=== PATIENT | male | born 1940 | race Caucasian/White ===

== ENCOUNTER 2018-10-29 17:54 | Emergency (ER) | payer OTHER ==
[2018-10-29 18:55] VITALS: BMI 20.7
--- NOTE | 2018-10-29 19:18 | PDOC ---
History of Present Illness - General Chief Complaint: Trach Tube Replacement Stated Complaint: DISLODGE TRACH - History of Present Illness Initial Comments: 10/29/18 20:09 78 year old man coming from [facility] who presents w/ trach displacement after recent tracheostomy placement on October 15 at [facility]. When calling facility for collateral they note that the patient was received at the facility on Oct 27 and that there is limited history at this time of the patient's history. [facility] was called in attempt to locate surgeon who had performed the procedure, Dr. Clark. The physician recommended transfer for management. ROS GENERAL/CONSTITUTIONAL: No fever or chills. No weakness. HEAD, EYES, EARS, NOSE AND THROAT: No change in vision. CARDIOVASCULAR: No chest pain or shortness of breath RESPIRATORY: No cough, wheezing, or hemoptysis. GASTROINTESTINAL: No nausea, vomiting, diarrhea or constipation. GENITOURINARY: No dysuria, frequency, or change in urination. MUSCULOSKELETAL: No joint or muscle swelling or pain. No neck or back pain. SKIN: No rash PE GENERAL: Awake, alert, in no acute distress HEAD: No signs of trauma, normocephalic, atraumatic EYES: EOMI, sclera anicteric, conjunctiva clear ENT: trachea dislodged approx 40% purulence/mucus around site, R side of neck with large granulated mass approx 4cm x 4cm w/ purulence/mucus NECK: displaced trach LUNGS: No distress, speaks full sentences, clear to auscultation bilaterally HEART: Regular rate and rhythm, normal S1 and S2, no murmurs, rubs or gallops, peripheral pulses normal and equal bilaterally. ABDOMEN: Soft, nontender, normoactive bowel sounds. No guarding, no rebound. No masses EXTREMITIES : Normal inspection, No clubbing or cyanosis. NEUROLOGICAL: Cranial nerves II through XII grossly intact. no focal sensorimotor deficits SKIN: Warm, Dry, normal turgor, no rashes or lesions noted MDM DDX including but not limited to: trach displacement ED Course: plan for transfer to [facility] for operating surgeons care Kezia Hagen, PGY2 Emergency Medicine Past History - Past Medical History Allergies/Adverse Reactions: Allergies Allergy/AdvReac Type Severity Reaction Status Date / Time No Known Allergies Allergy Verified 10/29/18 18:55 Home Medications: Ambulatory Orders Acetaminophen Oral Solution [Tylenol Oral Solution -] 650 mg PEG Q4H PRN Aspirin 81 mg PEG DAILY 10/29/18 Bacitracin - [Bacitracin Topical Ointment -] 1 applic TP DAILY 10/29/18 Bacitracin - [Bacitracin Topical Ointment -] 1 applic TP DAILY 10/29/18 Bacitracin - [Bacitracin Topical Ointment -] 1 applic TP QSHIFT 10/29/18 Bismuth Tribromoph/Petrolatum [Xeroform Petrolatum Dress] 1 each TP DAILY Chlorhexidine Gluconate 15 ml MM QID 10/29/18 Doxazosin Mesylate [Cardura -] 1 mg PEG DAILY 10/29/18 Esomeprazole Magnesium 40 mg PEG DAILY 10/29/18 Levofloxacin 750 mg PEG DAILY MDD FOR 7 DAYS- END DATE 11/04/2018 10/29/18 Levothyroxine Sodium [Euthyrox] 150 mcg PO DAILY 10/29/18 Meclizine HCl [Antivert -] 12.5 mg PO Q8H PRN 10/29/18 Oxycodone HCl 5 mg PO Q4H PRN 10/29/18 Polyvinyl Alcohol [Artificial Tears] 1 drop OD TID 10/29/18 Valsartan/Hydrochlorothiazide [Valsartan-Hctz 160-25 mg Tab] 1 each PO DAILY 02/04 - Suicide/Smoking/Psychosocial Hx Smoking History: Never smoked Have you smoked in the past 12 months: No Information on smoking cessation initiated: No Hx Alcohol Use: No Drug/Substance Use Hx: No *Physical Exam - Vital Signs Last Vital Signs Temp Pulse Resp BP Pulse Ox 98.2 F 77 17 116/78 98 10/29/18 17:54 10/29/18 17:54 10/29/18 17:54 10/29/18 17:54 10/29/18 17:54 *DC/Admit/Observation/Transfer - Referrals Referrals: Erick Ji [Primary Care Provider] - - Patient Instructions - Post Discharge Activity
--- NOTE | 2018-10-29 19:41 | PDOC ---
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 Per NH, pt's trach was removed today for cleaning. However, when trying to reinsert it, they were unable to pass it due to the mass in his neck. Pt denies any symptoms at this time. Denies SOB. Pt's ENT surgeon is at [facility]. - Physicial Exam PE: 10/29/18 19:39 GENERAL: Awake, alert, and fully oriented, in no acute distress. HEAD: No signs of trauma EYES: PERRLA, EOMI, sclera anicteric, conjunctiva clear ENT: + tracheostomy, trach partially displaced NECK: Nontender, no stepoffs, Normal ROM, supple, no lymphadenopathy, JVD, or masses LUNGS: Breath sounds equal, clear to auscultation bilaterally. No wheezes, and no crackles HEART: Regular rate and rhythm, normal S1 and S2, no murmurs, rubs or gallops ABDOMEN: Soft, nontender, normoactive bowel sounds. No guarding, no rebound. No masses EXTREMITIES: Normal range of motion, no edema. No clubbing or cyanosis. No cords, erythema, or tenderness NEUROLOGICAL: Cranial nerves II through XII intact. 5/5 strength and sensation in all extremities SKIN: Warm, Dry, normal turgor, no rashes or lesions noted. - Medical Decision Making 10/29/18 19:41 78 M with displaced trach, unable to replace due to neck mass. Pt is not on vent , breathing comfortably with trach collar. Clear lungs, no evidence of upper airway obstruction. - Transfer to [facility] for ENT eval
[2018-10-29 22:33] VITALS: BP 135/71; PULSE 61; TEMP 98
== END 2018-10-29 22:33 | disposition short-term general hospital (02) ==
LOC: JER 17:54
DX: Z43.0 Encounter for attention to tracheostomy (principal)
CPT/HCPCS: 99283-25

== ENCOUNTER 2018-11-14 22:20 | Inpatient (IN) | payer OTHER ==
--- NOTE | 2018-11-14 23:15 | PDOC ---
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 NECK: neck wound covered LUNGS: Breath sounds equal, clear to auscultation bilaterally. HEART:Regular rate and rhythm, normal S1 and S2 without murmur, rub or gallop. ABDOMEN: Soft, non distended PEG in place in the left abdomen, sutures in place with no granulation tissue EXTREMITIES: Normal range of motion NEUROLOGICAL: Moving all extremities, No focal neurological deficits. SKIN: no signs of cellulitis around the G tube 11/15/18 00:23 - Medical Decision Making 11/15/18 00:25 78 yo M presenting to the ER due to G tube dysfunction He states this occurred this afternoon Several attempts made to flush this tube, unsuccessful We have used both saline and coke 11/15/18 00:34 Will contact [facility] re: WHEN this G tube was placed Pt will likey need to stay for G tube replacement 11/15/18 01:28 Call placed to [facility] They do not know when the g tube was placed but there is documentation in their charting hat the G tube was in place in September 2018 Per [facility]dc, G tube placed 200711/15/18 01:43 Pt states he had a G tube for several years This was removed and replaced in this current location The new G tube is 3 weeks old He has not been given any tube feeds in 2 days They have been able to give his medications We have located a G tube de clogger but it is too big to fit into this g tube Will try to locate a smaller tube If we are unable to clear g tube will need to admit for GI Pt signed out to Dr Renteria
--- NOTE | 2018-11-14 23:43 | PDOC ---
History of Present Illness - General Chief Complaint: G Tube Problem Stated Complaint: PIPE TUBE CLOGGED Time Seen by Provider: 11/14/18 22:32 History Source: Patient Exam Limitations: Language Barrier (Libyan, heavily accented speech) - History of Present Illness Initial Comments: 11/14/18 23:42 Tad Lynn is a 78M from [facility] with PMH malignant neoplasm of the neck s/ p resection with trach and PEG placement, T2DM, and HTN presenting with blockage of PEG tube placed 3 weeks ago. Patient lives at [facility] since 10/27 after an admission at [facility]. Is NPO at baseline 2/2 neck surgery, has PEG in place for feeds. Patient has been getting medications and Jevity 1.5L 1200cc @ 85cc/hr through PEG without issue since arrival. Last 2 days the tube has been clogged, only able to pass medications, no Jevity. Transferred here for evaluation and declogging of tube. Patient is hungry, but denies any symptoms at this time. Past History - Past Medical History Allergies/Adverse Reactions: Allergies Allergy/AdvReac Type Severity Reaction Status Date / Time No Known Allergies Allergy Verified 11/14/18 22:31 Home Medications: Ambulatory Orders Aspirin 81 mg PEG DAILY 10/29/18 Chlorhexidine Gluconate 15 ml MM QID 10/29/18 Doxazosin Mesylate [Cardura -] 1 mg PEG DAILY 10/29/18 Esomeprazole Magnesium 40 mg PEG DAILY 10/29/18 Meclizine HCl [Antivert -] 12.5 mg PO Q8H PRN 10/29/18 Oxycodone HCl 5 mg PO Q4H PRN 10/29/18 Polyvinyl Alcohol [Artificial Tears] 1 drop OD TID 10/29/18 Valsartan/Hydrochlorothiazide [Valsartan-Hctz 160-25 mg Tab] 1 each PO DAILY 02/04 Levothyroxine Sodium 175 mcg PO DAILY 11/15/18 Tamsulosin HCl [Flomax] 0.4 mg PO DAILY 11/15/18 COPD: No - Psycho Social/Smoking Cessation Hx Smoking History: Unknown if ever smoked Have you smoked in the past 12 months: No Information on smoking cessation initiated: No Hx Alcohol Use: No Drug/Substance Use Hx: No Review of Systems - Review of Systems Able to Perform ROS?: Yes Comments:: 11/15/18 19:16 Libyan-speaking, difficult to understand. Constitutional: No: Symptoms Reported HEENTM: No: Symptoms Reported Respiratory: No: Symptoms reported Cardiac (ROS): No: Symptoms Reported ABD/GI: Yes: Other (hunger) : No: Symptoms Reported Musculoskeletal: No: Symptoms Reported Integumentary: No: Symptoms Reported Neurological: No: Symptoms reported Endocrine: No: Symptoms Reported Hematologic/Lymphatic: No: Symptoms Reported All Other Systems: Reviewed and Negative *Physical Exam - Vital Signs Last Vital Signs Temp Pulse Resp BP Pulse Ox 98.3 F 62 18 156/86 99 11/14/18 22:30 11/14/18 22:30 11/14/18 22:30 11/14/18 22:30 11/14/18 22:30 - Physical Exam General Appearance: Yes: Nourished, Appropriately Dressed, Thin. No: Apparent Distress HEENT: positive: EOMI, MANOHAR, Symmetrical, Muffled/Hoarse voice (mouth and neck shifted to R with extensive scarring). negative: Scleral Icterus (R), Scleral Icterus (L) Neck: negative: Tender, Supple, Lymphadenopathy (R), Lymphadenopathy (L) Respiratory/Chest: positive: Lungs Clear, Normal Breath Sounds. negative: Respiratory Distress, Accessory Muscle Use, Crackles, Rales, Rhonchi Cardiovascular: positive: Regular Rhythm, Regular Rate Gastrointestinal/Abdominal: positive: Normal Bowel Sounds, Soft, Other (PEG placed L periumbilical region, sutured in place, clogged. Well-healed central midline circular scar consistent with former PEG. Healing ). negative: Tender Musculoskeletal: positive: Normal Inspection. negative: CVA Tenderness Extremity: positive: Normal Capillary Refill, Normal Inspection, Normal Range of Motion. negative: Tender Integumentary: positive: Normal Color, Dry, Warm Neurologic: positive: Fully Oriented, Alert, Normal Mood/Affect, Normal Response , Motor Strength 5/5, Responsive ED Treatment Course - LABORATORY CBC & Chemistry Diagram: 11/15/18 02:15 11/15/18 02:15 Medical Decision Making - Medical Decision Making 11/14/18 23:42 Tad Lynn is a 78M from [facility] with PMH malignant neoplasm of the neck s/ p resection with trach and PEG placement, T2DM, and HTN presenting with blockage of PEG tube placed 3 weeks ago. Patient is otherwise asymptomatic and no complaints other than hunger. Alert/oriented x3 and has excellent recall of his medical history consistent with records, no memory issues or deficits notable. Has not eaten anything for the last 2 days, but has had medications. Multiple attempts to unclog tube, including saline flush, syringe suction, soda infusion, and manual declogging with a plastic DeClogger. Exchange of the G tube indicated. However, tube was placed under 4 weeks ago and is still sutured to abdomen, tract is not mature. Requires exchange of PEG by direct visualization by surgical team vs. GI. ECG shows sinus rhythm with 1st degree AV block, HR 64, QRS 134. 11/15/18 04:22 Spoke to [facility] regarding admission to Med-Surg under Dr. Potts. Consult placed for Dr. Salas for GI evaluation for tube exchange. Consider transfer back to [facility] for replacement given that is the facility it was placed. Discharge - Discharge Information Problems reviewed: Yes Clinical Impression/Diagnosis: PEG tube malfunction HTN (hypertension) Qualifiers: Hypertension type: essential hypertension Qualified Code(s): I10 - Essential ( primary) hypertension Diabetes mellitus Qualifiers: Diabetes mellitus type: type 2 Diabetes mellitus fpc insulin use: unspecified fpc insulin use status Diabetes mellitus complication status: without complication Qualified Code(s): E11.9 - Type 2 diabetes mellitus without complications Condition: Stable - Admission Yes - Follow up/Referral - Patient Discharge Instructions - Post Discharge Activity
[2018-11-15] MEDS ORDERED: SODIUM CHLORIDE 1,000 ML IV STA (02:03)
[2018-11-15 02:23] LABS: BASO % 1.1 % (0-2.0); EOS % 3.3 % (0-4.5); HEMATOCRIT 30.7 % (35.4-49); HEMOGLOBIN 10.3 GM/dL (11.7-16.9); LYMPH % 29.8 % (8-40); MCHC 33.4 g/dl (32.0-35.9); MEAN PLT VOLUME 8.2 fl (7.5-11.1); MONO % 7.2 % (3.8-10.2); NEUT % 58.6 % (42.8-82.8); PLATELET COUNT 190 K/MM3 (134-434); RBC 3.53 M/mm3 (4.00-5.60); RDW 13.8 % (11.9-15.9); WHITE BLOOD COUNT 3.9 K/mm3 (4.0-10.0)
[2018-11-15 02:43] LABS: MAGNESIUM 2.3 mg/dL (1.8-2.4); PHOSPHOROUS 3.4 mg/dL (2.5-4.9)
[2018-11-15 02:47] LABS: ALBUMIN 3.2 g/dl (3.4-5.0); BILIRUBIN,TOTAL 0.4 mg/dL (0.2-1); CALCIUM 9.1 mg/dL (8.5-10.1); CREATININE 0.8 mg/dL (0.55-1.3); TOT PROT 7.1 g/dl (6.4-8.2)
--- NOTE | 2018-11-15 04:12 | HP ---
Admitting History and Physical - Primary Care Physician PCP: Erick Ji - Admission Chief Complaint: Peg Malfunction History of Present Illness: This is a 78 y/o from [facility] man with a significant medical history of Oropharyngeal Ca s/p Trach (09/2018, [facility]), Trach removal (10/2018), PEG placement, HTN, DM, Hypothyroidism, BPH. Who presents to the ED for malfunctioned Peg Tube x 2 days. Per transfer records, medications were given but could not give feedings due to blockage. Patient is Citizen Of [place] speaking [place] used #[id number]. Patient has no complaints at present. Patient denies fever, chills, cough, dizziness, BAUM, SOB, CP, palpitations, N/V/D, constipation , dysuria. Tube Feeding: Jevity1.5 1200cc via GT @85cc/hr History Source: Patient, Transfer Record Limitations to Obtaining History: Language Barrier (Citizen Of [place]), Physical Impairment - Past Medical History Cardiovascular: Yes: HTN Gastrointestinal: Yes: GERD Renal/: Yes: BPH ENT: Yes: Other (Head/Neck Ca Tongue Ca) Endocrine: Yes: Diabetes Mellitus, Hypothyroidism - Past Surgical History Additional Past Surgical History: PEG Tracheotomy placement Tracheotomy removal - Smoking History Smoking history: Unknown if ever smoked Have you smoked in the past 12 months: No - Alcohol/Substance Use Hx Alcohol Use: No History of Substance Use: reports: None - Social History Usual Living Arrangement: Yes: [facility] Do you think of yourself as: Straight/Heterosexual ADL: Support Services History of Recent Travel: No Home Medications - Allergies Allergies/Adverse Reactions: Allergies Allergy/AdvReac Type Severity Reaction Status Date / Time No Known Allergies Allergy Verified 11/14/18 22:31 - Home Medications Home Medications: Ambulatory Orders Aspirin 81 mg PEG DAILY 10/29/18 Chlorhexidine Gluconate 15 ml MM QID 10/29/18 Doxazosin Mesylate [Cardura -] 1 mg PEG DAILY 10/29/18 Esomeprazole Magnesium 40 mg PEG DAILY 10/29/18 Meclizine HCl [Antivert -] 12.5 mg PO Q8H PRN 10/29/18 Oxycodone HCl 5 mg PO Q4H PRN 10/29/18 Polyvinyl Alcohol [Artificial Tears] 1 drop OD TID 10/29/18 Valsartan/Hydrochlorothiazide [Valsartan-Hctz 160-25 mg Tab] 1 each PO DAILY 02/04 Levothyroxine Sodium 175 mcg PO DAILY 11/15/18 Tamsulosin HCl [Flomax] 0.4 mg PO DAILY 11/15/18 Family Medical History Family History: Unable to Obtain Review of Systems - Review of Systems Constitutional: reports: No Symptoms Eyes: reports: No Symptoms HENT: reports: No Symptoms Neck: reports: No Symptoms Cardiovascular: reports: No Symptoms Respiratory: reports: No Symptoms Gastrointestinal: reports: No Symptoms Genitourinary: reports: No Symptoms Breasts: reports: No Symptoms Reported Musculoskeletal: reports: No Symptoms Integumentary: reports: No Symptoms Neurological: reports: No Symptoms Endocrine: reports: No Symptoms Hematology/Lymphatic: reports: No Symptoms Psychiatric: reports: No Symptoms Physical Examination Vital Signs: Vital Signs Temperature 98.3 F 11/14/18 22:30 Pulse Rate 62 11/14/18 22:30 Respiratory Rate 18 11/14/18 22:30 Blood Pressure 156/86 11/14/18 22:30 O2 Sat by Pulse Oximetry (%) 99 11/15/18 00:00 Constitutional: Yes: No Distress, Calm, Thin, Other (diificult to understand- baseline) Eyes: Yes: WNL, Conjunctiva Clear, EOM Intact, PERRL HENT: Yes: Atraumatic, Other (poor dentition surgical scar to tongue) Neck: Yes: Supple, Trachea Midline, Other (left lateral neck wound post malignant neoplasm with dressing c/d/i) Cardiovascular: Yes: Regular Rate and Rhythm, S1, S2 Respiratory: Yes: WNL, Regular, CTA Bilaterally Gastrointestinal: Yes: Normal Bowel Sounds, Soft, Other (peg to LMQ surrounding skin intact) ...Rectal Exam: Yes: Deferred Renal/: Yes: WNL Breast(s): Yes: WNL Musculoskeletal: Yes: WNL Extremities: Yes: WNL Edema: No Peripheral Pulses WNL: Yes Wound/Incision: Yes: Dressing Dry and Intact, Reddened, Excoriated Neurological: Yes: WNL, Alert, Oriented, Cran Nerves II-XII Intact ...Motor Strength: WNL Psychiatric: Yes: WNL, Alert, Oriented Labs: CBC, BMP 11/15/18 02:15 11/15/18 02:15 Laboratory Results - last 24 hr 11/15/18 11/15/18 11/15/18 02:15 02:15 02:15 WBC 3.9 L RBC 3.53 L Hgb 10.3 L Hct 30.7 L MCV 87.0 MCH 29.0 MCHC 33.4 RDW 13.8 Plt Count 190 MPV 8.2 Absolute Neuts (auto) 2.3 Neutrophils % 58.6 Lymphocytes % 29.8 Monocytes % 7.2 Eosinophils % 3.3 Basophils % 1.1 Nucleated RBC % 0 Sodium 140 Potassium 4.0 Chloride 102 Carbon Dioxide 32 Anion Gap 6 L BUN 23.0 H Creatinine 0.8 Est GFR (CKD-EPI)AfAm 100.57 Est GFR (CKD-EPI)NonAf 86.77 Random Glucose 86 Calcium 9.1 Phosphorus 3.4 Magnesium 2.3 Total Bilirubin 0.4 AST 22 ALT 31 Alkaline Phosphatase 107 Total Protein 7.1 Albumin 3.2 L Intake & Output 11/12/18 11/13/18 11/14/18 11/15/18 23:59 23:59 23:59 23:59 Weight 63.503 kg Imaging - Results Chest X-ray: Image Reviewed EKG: Image Reviewed Problem List - Problems (1) PEG tube malfunction Code(s): K94.23 - GASTROSTOMY MALFUNCTION (2) HTN (hypertension) Code(s): I10 - ESSENTIAL (PRIMARY) HYPERTENSION (3) Diabetes mellitus Code(s): E11.9 - TYPE 2 DIABETES MELLITUS WITHOUT COMPLICATIONS (4) Hypothyroid Code(s): E03.9 - HYPOTHYROIDISM, UNSPECIFIED (5) BPH (benign prostatic hyperplasia) Code(s): N40.0 - BENIGN PROSTATIC HYPERPLASIA WITHOUT LOWER URINRY TRACT SYMP Assessment/Plan This is a 78 y/o man with a PMHx of Oropharyngeal Ca s/p Trach (09/2018, [facility]), Trach removal (10/2018), s/p PEG, HTN, DM, Hypothyroid, BPH. Admitted to med/surg for PEG Malfunction for further evaluation of their emergent condition. Plan: Admit: Appreciate GI consult BGMs Continue home meds as appropriate IV EKG- SR with 1st degree AV block, no study available to compare Chest Xray- pending Monitor CBC, BMP Monitor vitals FEN- D51/2NS@42ml/hr, replete lytes prn, NPO DVT ppx- OOB, SCDs, Heparin SQ Code Status: Full Code Dispo: Requires Inpatient Care Visit type - Emergency Visit Emergency Visit: Yes ED Registration Date: 11/14/18 Care time: The patient presented to the Emergency Department on the above date and was hospitalized for further evaluation of their emergent condition. - New Patient This patient is new to me today: Yes Date on this admission: 11/15/18 - Critical Care Critical Care patient: No
[2018-11-15] MEDS: DEXTROSE 5%-0.45% SALINE 1,000 ML IV SCH (05:16)
[2018-11-15 07:05] VITALS: BMI 18.1
--- NOTE | 2018-11-15 08:08 | CON.GI ---
Consult - History of Present Illness History of Present Illness: GI CONSULT DICTATED - ENZYME TRIAL TO UNCLOG THE PEG TUBE - FURTHER REC PENDING THIS TRIAL - SEE CONSULT FOR FULL DETAILS. - Past Medical History Cardio/Vascular: Yes: HTN Gastrointestinal: Yes: GERD Renal/: Yes: BPH ENT: Yes: Other (Head/Neck Ca Tongue Ca) Endocrine: Yes: Diabetes Mellitus, Hypothyroidism - Alcohol/Substance Use Hx Alcohol Use: No History of Substance Use: reports: None - Smoking History Smoking history: Unknown if ever smoked Have you smoked in the past 12 months: No - Social History ADL: Support Services History of Recent Travel: No Home Medications - Allergies Allergies/Adverse Reactions: Allergies Allergy/AdvReac Type Severity Reaction Status Date / Time No Known Allergies Allergy Verified 11/14/18 22:31 - Home Medications Home Medications: Ambulatory Orders Aspirin 81 mg PEG DAILY 10/29/18 Chlorhexidine Gluconate 15 ml MM QID 10/29/18 Doxazosin Mesylate [Cardura -] 1 mg PEG DAILY 10/29/18 Esomeprazole Magnesium 40 mg PEG DAILY 10/29/18 Meclizine HCl [Antivert -] 12.5 mg PO Q8H PRN 10/29/18 Oxycodone HCl 5 mg PO Q4H PRN 10/29/18 Polyvinyl Alcohol [Artificial Tears] 1 drop OD TID 10/29/18 Valsartan/Hydrochlorothiazide [Valsartan-Hctz 160-25 mg Tab] 1 each PO DAILY 02/04 Levothyroxine Sodium 175 mcg PO DAILY 11/15/18 Tamsulosin HCl [Flomax] 0.4 mg PO DAILY 11/15/18 Physical Exam-GI Vital Signs: Vital Signs Temperature 98 F 11/15/18 07:00 Pulse Rate 72 11/15/18 07:00 Respiratory Rate 18 11/15/18 07:00 Blood Pressure 143/93 11/15/18 07:00 O2 Sat by Pulse Oximetry (%) 99 11/15/18 05:28 Labs: CBC, BMP 11/15/18 02:15 11/15/18 02:15
[2018-11-15] MEDS ORDERED: FLU VACCINE QUAD 60 MCG/0.5 ML (MDV 19-20) IM ONE (10:00)
[2018-11-15] MEDS ORDERED: PT OWN MED DRAWER 7, Y5N ONE (10:45)
[2018-11-15] MEDS: PANTOPRAZOLE SODIUM 40 MG VIAL IVPUSH SCH (10:48)
[2018-11-15] MEDS: LEVOTHYROXINE SODIUM 100 MCG VIAL IVPUSH SCH (10:58)
[2018-11-15] MEDS ORDERED: LIPASE/PROTEASE/AMYLASE 6,000 UNIT CAPSULE PO ONE (11:00)
--- NOTE | 2018-11-15 15:23 | PN ---
Progress Note, Physician Chief Complaint: Oropharyngeal Cancer Malfunctioning G tube History of Present Illness: Previous notes and events reviewed awake and alert NAD denies complaints of pain no acute events reported - Current Medication List Current Medications: Active Medications Dextrose/Sodium Chloride (D5-1/2ns -) 1,000 mls @ 42 mls/hr IV ASDIR [facility] Last Admin: 11/15/18 05:16 Dose: 42 mls/hr Levothyroxine Sodium (Synthroid Injection -) 130 mcg IVPUSH DAILY [facility] Last Admin: 11/15/18 10:58 Dose: 130 mcg Pantoprazole Sodium (Protonix Iv) 40 mg IVPUSH DAILY [facility] Last Admin: 11/15/18 10:48 Dose: 40 mg - Objective Vital Signs: Vital Signs Temperature 97.7 F 11/15/18 10:56 Pulse Rate 57 L 11/15/18 10:56 Respiratory Rate 18 11/15/18 10:56 Blood Pressure 143/66 11/15/18 10:56 O2 Sat by Pulse Oximetry (%) 99 11/15/18 05:28 Constitutional: Yes: No Distress, Calm Eyes: Yes: Conjunctiva Clear HENT: Yes: Atraumatic Cardiovascular: Yes: Regular Rate and Rhythm Respiratory: Yes: Regular, CTA Bilaterally Gastrointestinal: Yes: Normal Bowel Sounds, Soft, Other (G tube) Musculoskeletal: Yes: WNL Extremities: Yes: WNL Edema: No Neurological: Yes: Alert, Oriented Psychiatric: Yes: Alert, Oriented Labs: CBC, BMP 11/15/18 02:15 11/15/18 02:15 Problem List - Problems (1) Diabetes mellitus Assessment/Plan: -BGM ACHS Code(s): E11.9 - TYPE 2 DIABETES MELLITUS WITHOUT COMPLICATIONS (2) HTN (hypertension) Assessment/Plan: -BP meds on hold -monitor BP -Lopressor 5mg IVPB prn for SBP >180 and/or DBP >90 Code(s): I10 - ESSENTIAL (PRIMARY) HYPERTENSION (3) Hypothyroid Assessment/Plan: -Levothyroxine Code(s): E03.9 - HYPOTHYROIDISM, UNSPECIFIED (4) PEG tube malfunction Assessment/Plan: -GI on board -NPO -IV hydration -Creon Code(s): K94.23 - GASTROSTOMY MALFUNCTION Assessment/Plan see problem list dvt ppx
[2018-11-15] MEDS ORDERED: METOPROLOL TARTRATE 5 MG/5 ML VIAL IVPB PRN (15:58)
--- NOTE | 2018-11-15 16:11 | CONS ---
DATE OF CONSULTATION: 11/15/2018 The patient is a 78-year-old man from the long term facility. He has a past medical history significant for oropharyngeal cancer, status post tracheostomy in September of 2018, apparently had a PEG tube for many years prior; however, was removed at [facility] and a new one was placed this past September of 2018, also with a tracheostomy, which was removed in October of 2018, also with a history of hypertension, diabetes, hypothyroidism, and BPH. He presented to the emergency room for a clogged PEG tube for the past couple of days. 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 There were no complaints of abdominal pain, nausea, vomiting, hematemesis, melena, hematochezia, change in bowel habits. PAST MEDICAL AND SURGICAL HISTORY: As listed in the HPI. ALLERGIES: No known drug allergies. SOCIAL HISTORY: Currently a nonsmoker, does not use drugs. FAMILY HISTORY: Noncontributory. MEDICATIONS: Home medications were reviewed and include aspirin, Cardura, PPI, Antivert, oxycodone, Artificial Tears, valsartan/hydrochlorothiazide, levothyroxine, and Flomax. REVIEW OF SYSTEMS: As per the HPI. PHYSICAL EXAMINATION: Vital Signs: Temperature 97, pulse 57, blood pressure 143/66, pulse oximetry 99% on room air, respiratory rate 16. General: No acute distress. HEENT: Anicteric sclerae. Cardiovascular: S1, S2, regular rate and rhythm. Lungs: Clear anteriorly bilaterally to auscultation. Abdomen: PEG tube visualized, nontender abdomen. Extremities: No edema. LABORATORY DATA: White blood cell count 3.9, hemoglobin 10, hematocrit 30, platelet count 190. Sodium 140, potassium 4, BUN 23, creatinine 0.8, glucose 86, total bilirubin 0.4, AST 22, ALT 31, alkaline phosphatase 107. He had a chest x-ray which revealed no acute chest pathology. IMPRESSION: Malfunctioning percutaneous gastrostomy tube, most likely clogged. Apparently in the ER, they tried Coca Cola, which did not work. Enzymes with bicarbonate was ordered from the pharmacy and instructions were given to the nurse to inject into the PEG tube using a syringe at attempt to unclog the PEG tube. Further recommendations pending these conservative measures, considering this tube was just placed at some point in the end of September of this year, it cannot be replaced at the bedside. It would need to be done once again endoscopically or with interventional radiology. Will follow up with the nurse later today and plan care accordingly. For now, continue IV fluids. DO JASON NEFF/[id number]
--- NOTE | 2018-11-15 16:47 | EKG ---
Test Reason : Blood Pressure : / mmHG Vent. Rate : 064 BPM Atrial Rate : 064 BPM P-R Int : 258 ms QRS Dur : 134 ms QT Int : 422 ms P-R-T Axes : 063 -52 066 degrees QTc Int : 435 ms SINUS RHYTHM WITH 1ST DEGREE A-V BLOCK LEFT AXIS DEVIATION NON-SPECIFIC INTRA-VENTRICULAR CONDUCTION BLOCK ABNORMAL ECG NO PREVIOUS ECGS AVAILABLE Confirmed by ÓSCAR WINKLER MD ([id number]) on 11/15/2018 4:47:05 PM Referred By: Confirmed By:ÓSCAR WINKLER MD
[2018-11-16] MEDS: DEXTROSE 5%-0.45% SALINE 1,000 ML IV SCH (03:57)
[2018-11-16 07:52] LABS: HEMATOCRIT 31.5 % (35.4-49); HEMOGLOBIN 10.7 GM/dL (11.7-16.9); MCH 29.7 pg (25.7-33.7); MEAN CELL VOLUME 87.2 fl (80-96); MEAN PLT VOLUME 8.7 fl (7.5-11.1); PLATELET COUNT 187 K/MM3 (134-434); RBC 3.61 M/mm3 (4.00-5.60); RDW 13.6 % (11.9-15.9); WHITE BLOOD COUNT 3.5 K/mm3 (4.0-10.0)
[2018-11-16 08:12] LABS: ALBUMIN 3.2 g/dl (3.4-5.0); BILIRUBIN,TOTAL 0.5 mg/dL (0.2-1); BLOOD UREA NITROGEN 15.9 mg/dL (7-18); CALCIUM 9.2 mg/dL (8.5-10.1); CREATININE 0.8 mg/dL (0.55-1.3); POTASSIUM 4.1 mmol/L (3.5-5.1)
--- NOTE | 2018-11-16 08:27 | PN ---
Progress Note, Physician Chief Complaint: AWAKE ALERT EVENTS AND NOTES REVIEWED NO FEVER OR CHILLS DENIES N/V - Current Medication List Current Medications: Active Medications Dextrose/Sodium Chloride (D5-1/2ns -) 1,000 mls @ 42 mls/hr IV ASDIR [facility] Last Admin: 11/16/18 03:57 Dose: 42 mls/hr Levothyroxine Sodium (Synthroid Injection -) 130 mcg IVPUSH DAILY [facility] Last Admin: 11/15/18 10:58 Dose: 130 mcg Metoprolol Tartrate (Lopressor Injection -) 5 mg IVPB Q4H PRN PRN Reason: HYPERTENSION Pantoprazole Sodium (Protonix Iv) 40 mg IVPUSH DAILY [facility] Last Admin: 11/15/18 10:48 Dose: 40 mg - Objective Vital Signs: Vital Signs Temperature 98.2 F 11/16/18 05:00 Pulse Rate 65 11/16/18 05:00 Respiratory Rate 18 11/16/18 05:00 Blood Pressure 155/98 11/16/18 05:00 O2 Sat by Pulse Oximetry (%) 100 11/15/18 21:00 Constitutional: Yes: No Distress Eyes: Yes: WNL HENT: Yes: Other (ORAL / MOTU SURGICAL CHANGES OLD NO DISCHARGE OR PUS) Neck: Yes: WNL Cardiovascular: Yes: Regular Rate and Rhythm Respiratory: Yes: WNL Gastrointestinal: Yes: Other (GTUBE IN PLACE, NON-TENDER) Genitourinary: Yes: WNL Musculoskeletal: Yes: WNL Extremities: Yes: WNL Peripheral Pulses WNL: Yes Integumentary: Yes: WNL Wound/Incision: Yes: Other Neurological: Yes: WNL ...Motor Strength: WNL Psychiatric: Yes: WNL Labs: CBC, BMP 11/16/18 06:05 Problem List - Problems (1) BPH (benign prostatic hyperplasia) Code(s): N40.0 - BENIGN PROSTATIC HYPERPLASIA WITHOUT LOWER URINRY TRACT SYMP (2) Diabetes mellitus Code(s): E11.9 - TYPE 2 DIABETES MELLITUS WITHOUT COMPLICATIONS Qualifiers: Diabetes mellitus type: type 2 Diabetes mellitus snf insulin use: unspecified snf insulin use status Diabetes mellitus complication status : without complication Qualified Code(s): E11.9 - Type 2 diabetes mellitus without complications (3) HTN (hypertension) Code(s): I10 - ESSENTIAL (PRIMARY) HYPERTENSION Qualifiers: Hypertension type: essential hypertension Qualified Code(s): I10 - Essential (primary) hypertension (4) Hypothyroid Code(s): E03.9 - HYPOTHYROIDISM, UNSPECIFIED (5) PEG tube malfunction Code(s): K94.23 - GASTROSTOMY MALFUNCTION Assessment/Plan D/W GI TO EITHER TO HAVE GTUBE REPLACED BY IR OR GI AWAITING DECISION IVF, GLUCOMETER CHECKED DVT PROPHYLAXIS HTN ON EMTOPROLOL IVPG ADDING ENALAPRILAT IV NO CONTRAINDICATION FOR GTUBE CHANGE
[2018-11-16] MEDS ORDERED: ENALAPRILAT DIHYDRATE 1.25 MG/1 ML VIAL IVPB ONE (08:45)
--- NOTE | 2018-11-16 08:54 | PN.GI ---
GI Progress Note Subjective: As per RN G tube is still not functioning and unable to be used. Patient failed enzyme trial. Patient denies nausea, vomiting, abdominal pain. Denies rectal bleeding, blood in stool, melena, abdnormal weight loss. - Objective Vital Signs: Vital Signs Temperature 98.2 F 11/16/18 05:00 Pulse Rate 65 11/16/18 05:00 Respiratory Rate 18 11/16/18 05:00 Blood Pressure 155/98 11/16/18 05:00 O2 Sat by Pulse Oximetry (%) 100 11/15/18 21:00 Constitutional: No Distress, Calm Eyes: Yes: Conjunctiva Clear HENT: Yes: Atraumatic Cardiovascular: Yes: Regular Rate and Rhythm Respiratory: Yes: Regular, CTA Bilaterally Gastrointestinal Inspection: Yes: WNL, Other (G tube). No: Ascites, Distention , Hernia, Scars ...Auscultate: Yes: Normoactive Bowel Sounds. No: Hyperactive Bowel Sounds, Hypoactive Bowel Sounds, No Bowel Sounds, Other ...Palpate: Yes: Soft. No: Firm/Rigid, Guarding, Hepatomegaly, Mass, Pulsatile Mass, Splenomegaly, Tenderness, Tenderness, Epigastium, Tenderness, Rebound, Other ...Percussion: Yes: Tympanitic. No: Dullness, Fluid Wave, Other Neurological: Yes: Alert, Oriented Psychiatric: Yes: Alert, Oriented Labs: CBC, BMP 11/16/18 06:05 11/16/18 06:05 Active Medications Generic Name Dose Route Start Last Admin Trade Name Freq PRN Reason Stop Dose Admin Dextrose/Sodium Chloride 1,000 mls @ 42 mls/hr 11/15/18 04:15 11/16/18 03:57 D5-1/2ns - IV 42 mls/hr ASDIR DONELL Administration Levothyroxine Sodium 130 mcg 11/15/18 10:00 11/15/18 10:58 Synthroid Injection - IVPUSH 130 mcg DAILY DONELL Administration Metoprolol Tartrate 5 mg 11/15/18 15:58 Lopressor Injection - IVPB Q4H PRN HYPERTENSION Pantoprazole Sodium 40 mg 11/15/18 10:00 11/15/18 10:48 Protonix Iv IVPUSH 40 mg DAILY DONELL Administration Problem List - Problems (1) PEG tube malfunction Assessment/Plan: -will attempt at bedside to de-clog PEG tube, if unsuccessful will need to change tube endoscopically or with IR. Code(s): K94.23 - GASTROSTOMY MALFUNCTION
[2018-11-16] MEDS ORDERED: PT OWN MED DRAWER 7, Y5N ONE ×2 (10:54→11:17)
[2018-11-16] MEDS: LEVOTHYROXINE SODIUM 100 MCG VIAL IVPUSH SCH (10:57)
[2018-11-16] MEDS: PANTOPRAZOLE SODIUM 40 MG VIAL IVPUSH SCH (10:57)
--- NOTE | 2018-11-16 11:46 | CONSULT ---
Admitting History and Physical - Past Medical History Cardiovascular: Yes: HTN Gastrointestinal: Yes: GERD Renal/: Yes: BPH ENT: Yes: Other (Head/Neck Ca Tongue Ca) Endocrine: Yes: Diabetes Mellitus, Hypothyroidism - Past Surgical History Additional Past Surgical History: PEG Tracheotomy placement Tracheotomy removal - Smoking History Smoking history: Unknown if ever smoked Have you smoked in the past 12 months: No - Alcohol/Substance Use Hx Alcohol Use: No History of Substance Use: reports: None - Social History ADL: Support Services History of Recent Travel: No History - Admission Reason For Visit: GASTROSTOMY TUBE OBSTRUCTION - Hearing Hearing: Normal Hearing Aide: No Speech Evaluation - Communication Primary Language: [place] Secondary Language: VINCENTIAN Communication: Yes: Simple Responses (yes no WFL) Oral Expression Ability: Yes: Severe Impairment (poor articulation) - Speech Production Dysarthria: Yes: Flaccid Apraxia: No Able to Make Needs Known: Yes: Severely Impaired (poor articulation) - Speech Characteristics Voice Loudness: Monoloudness Voice Pitch: Yes: Limited Variation Voice Phonatory-based Quality: Yes: Weak Speech Pattern: Impaired Speech Clarity: < 75% Nasal Resonance: Hyponasal/Denasal Articulation: Yes: Imprecise Rate of Speech: Too Slow Voice, Other Observations: Yes: Mouth Breathing Voice Comment: difficult expressive language skills - Language/Auditory Comprehension Follows: Yes: 1 Stage Simple Commands (WFL), 2 Stage Simple Commands (WFL) Observation: Able to respond to yes/no queries: Yes, Yes/No Confusion: No, Comprehends Conversational Speech: Yes (in both languages ), Benefits from Slow Speech: No, Benefits from Repetiton: Yes, Benefits from Increased Volume of Speech: No - Language/Verbal Expression Able to Respond to Simple Queries: Yes: WNL (yes no) Able to Communicate Wants and Needs: Yes: Severely Impaired Functional Communication Status: Yes: Severely Impaired Aware of Errors: Yes Attempts to Correct Errors: Yes Use of Gestures: No Written Expression: not examined Reading Comprehension: not examined Calculations: not examined Attention: Yes: Intact - Memory/Perception group home Memory: Yes: Mildly Impaired Short Term Memory: Yes: Mildly Impaired - Swallow Evaluation/Bedside Assessment Current Nutritional Intake: NPO, G Tube (malfunction) Oral Secretions: Yes: Halitosis, Dryness Tracheostomy Present: No Patient on Ventilator: No Dentition: Yes: Edentulous, Missing Teeth (fair condition.) Facial Symmetry at Rest: Facial Droop Left Facial Symmetry on Retraction: Facial Droop Left Facial Movement: Controlled Sensation: Normal Facial Comment: asymmetrical could possibly affect speech Jaw Position: Closed at Rest Against Resistance Opening: Weak Against Resistance Closing: Normal Pucker Lips: Droops Left Smile: Droops Left Lips, Comment: reduced but within functional limits for speech and swallow Lingual Movement: Reduced Tip Elevation, Reduced Lt Lateralization, Reduced Protrusion Lingual Speed of Movement: Reduced Lingual Movement Strgth Against Opposition: Reduced Lingual Movement Characteristics: Fasciculations, Apraxic Lingual Comment: reduced movement Soft Palate Description: Normal Color Hard Palate Description: Normal Color Gag Reflex: Weak Velopharyngeal Movement: Normal Laryngeal Elevation: Impaired Laryngeal Movement: Labored,delay initiation Needs Assistance: No Rate of Intake: Impulsive Bolus Size: Small Labial Seal: WFL Chewing: Impaired Oral Prep Time: WFL A-P Transit: WFL Pocketing: Clears Independently Timing of Swallow: Delayed Coughing/Throat Clear: No Change in Voice: No Other Findings/Remarks: 78 yo male seen at chairside on unit for swallow eval to r/o dysphagia. Pt is verbal with poor articulation (less than 75% understood). Pt primary language is Sammarinese but completely understands Malawian. Admitted to [facility] for PEG malfunction. Pt presents with BPH, DM, HTN, hypothyroid and s/p trach removal ( 10/2018). Asymmetrical facial features with limited lingual movement, reduced laryngeal movement and airway protection. Vocal quality is breathy and nasal. Current diet NPO Pt given po trials of puree without assistance revealed good acceptance, adequate bolus formation and transport. Pharyngeal swallows are delayed 2-3 seconds with no s/s of aspiration-like behaviors at chairside. Pt given po trials of thick and thin liquids sips without assistance were unremarkable for aspiration-like behaviors at this time. Recommendations - Speech Evaluation, Impression/Plan Impression: 78 yo presents with mild to moderate pharyngeal phase dysphagia for purees thick and thin liquids with no s/s of aspiration at chairside. Pt also presents with severe expressive language with poor articulation in both Sammarinese and Malawian. Silent aspiration cannot be ruled out a chairside. Recommended Therapies: Articulation, Other (AAC?) Picking Crew Supervisor Goals: tolerate the least restrictive diet without s/s of aspiration Short Term Goals: tolerate the least restrictive diet without s/s of aspiration - Dysphagia Impressions/Plan Swallowing Skills: Impaired Dysphagia Impressions: Moderate Impairment (limited laryngeal movement.), Risk of Aspiration, Suspect Aspiration *Silent aspiration: cannot be R/O at bedside Dysphagia Evaluation Summary: Continue NPO status at this time. Silent aspiration is a good possibility with reduced laryngeal movement, poor airway protection and breathy vocalization. Consider alternate means of providing nutritional support, hydration and medication. Results given verbally to set up and charger and PCP via chart. prawn trawler hand to follow up. - Recommendations Diet Consistency: NPO Liquids: NPO
[2018-11-17] MEDS: DEXTROSE 5%-0.45% SALINE 1,000 ML IV SCH (06:32)
--- NOTE | 2018-11-17 08:18 | PN.GI ---
GI Progress Note Subjective: Patient failed de-clogging attempt at bedside of G tube. IR consult placed. Denies nausea, vomiting, abdominal pain. Denies diarrhea, constipation, rectal bleeding. - Objective Vital Signs: Vital Signs Temperature 97.6 F 11/17/18 06:51 Pulse Rate 53 L 11/17/18 06:51 Respiratory Rate 20 11/17/18 06:51 Blood Pressure 135/67 11/17/18 06:51 O2 Sat by Pulse Oximetry (%) 100 11/16/18 21:00 Constitutional: No Distress, Calm Eyes: Yes: Conjunctiva Clear HENT: Yes: Atraumatic Cardiovascular: Yes: Regular Rate and Rhythm Respiratory: Yes: Regular, CTA Bilaterally Gastrointestinal Inspection: Yes: WNL. No: Ascites, Distention, Hernia, Scars, Other ...Auscultate: Yes: Normoactive Bowel Sounds. No: Hyperactive Bowel Sounds, Hypoactive Bowel Sounds, No Bowel Sounds, Other ...Palpate: Yes: Soft. No: Firm/Rigid, Guarding, Hepatomegaly, Mass, Pulsatile Mass, Splenomegaly, Tenderness, Tenderness, Epigastium, Tenderness, Rebound, Other ...Percussion: Yes: Tympanitic. No: Dullness, Fluid Wave, Other Neurological: Yes: Alert, Oriented Psychiatric: Yes: Alert, Oriented Labs: CBC, BMP 11/16/18 06:05 11/16/18 06:05 Active Medications Generic Name Dose Route Start Last Admin Trade Name Freq PRN Reason Stop Dose Admin Dextrose/Sodium Chloride 1,000 mls @ 42 mls/hr 11/15/18 04:15 11/17/18 06:32 D5-1/2ns - IV 42 mls/hr ASDIR DONELL Administration Levothyroxine Sodium 130 mcg 11/15/18 10:00 11/16/18 10:57 Synthroid Injection - IVPUSH 130 mcg DAILY DONELL Administration Metoprolol Tartrate 5 mg 11/15/18 15:58 Lopressor Injection - IVPB Q4H PRN HYPERTENSION Pantoprazole Sodium 40 mg 11/15/18 10:00 11/16/18 10:57 Protonix Iv IVPUSH 40 mg DAILY DONELL Administration Problem List - Problems (1) PEG tube malfunction Assessment/Plan: -IR consult placed, will need to change tube endoscopically with IR. Code(s): K94.23 - GASTROSTOMY MALFUNCTION
--- NOTE | 2018-11-17 08:37 | PN ---
Progress Note, Physician Chief Complaint: AWAKE ALERT NO FEVER OR CHILLS DENIES CHEST PAIN OR SOB - Current Medication List Current Medications: Active Medications Dextrose/Sodium Chloride (D5-1/2ns -) 1,000 mls @ 42 mls/hr IV ASDIR [facility] Last Admin: 11/17/18 06:32 Dose: 42 mls/hr Levothyroxine Sodium (Synthroid Injection -) 130 mcg IVPUSH DAILY [facility] Last Admin: 11/16/18 10:57 Dose: 130 mcg Metoprolol Tartrate (Lopressor Injection -) 5 mg IVPB Q4H PRN PRN Reason: HYPERTENSION Pantoprazole Sodium (Protonix Iv) 40 mg IVPUSH DAILY [facility] Last Admin: 11/16/18 10:57 Dose: 40 mg - Objective Vital Signs: Vital Signs Temperature 97.6 F 11/17/18 06:51 Pulse Rate 53 L 11/17/18 06:51 Respiratory Rate 20 11/17/18 06:51 Blood Pressure 135/67 11/17/18 06:51 O2 Sat by Pulse Oximetry (%) 100 11/16/18 21:00 Constitutional: Yes: No Distress Eyes: Yes: WNL HENT: Yes: Other (SURGICAL MALFORMATION OF MOTH/LIPS) Neck: Yes: WNL Cardiovascular: Yes: Regular Rate and Rhythm Respiratory: Yes: WNL Gastrointestinal: Yes: Other (GTUBE IN PLACE NOT FUNCTIONING) Musculoskeletal: Yes: Muscle Weakness Edema: No Peripheral Pulses WNL: Yes Integumentary: Yes: WNL Wound/Incision: Yes: Other Neurological: Yes: Pre-Existing Deficit Labs: CBC, BMP 11/16/18 06:05 11/16/18 06:05 Problem List - Problems (1) BPH (benign prostatic hyperplasia) Code(s): N40.0 - BENIGN PROSTATIC HYPERPLASIA WITHOUT LOWER URINRY TRACT SYMP (2) Diabetes mellitus Code(s): E11.9 - TYPE 2 DIABETES MELLITUS WITHOUT COMPLICATIONS Qualifiers: Diabetes mellitus type: type 2 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 insulin use: unspecified shelter insulin use status Diabetes mellitus complication status : without complication Qualified Code(s): E11.9 - Type 2 diabetes mellitus without complications (3) HTN (hypertension) Code(s): I10 - ESSENTIAL (PRIMARY) HYPERTENSION Qualifiers: Hypertension type: essential hypertension Qualified Code(s): I10 - Essential (primary) hypertension (4) Hypothyroid Code(s): E03.9 - HYPOTHYROIDISM, UNSPECIFIED (5) PEG tube malfunction Code(s): K94.23 - GASTROSTOMY MALFUNCTION (6) Cancer of the lip, oral cavity, and pharynx Code(s): C14.8 - MALIG NEOPLM OF OVRLP SITES OF LIP, ORAL CAVITY AND PHARYNX Assessment/Plan AWAITING I.R. FOR GTUBE REPAIR/REPLACEMENT MEDS REVIEWED LABS REVIEWED DVT PROPHYLAXIS OOB TO CHAIR WITH ASSISTANCE PT DARIELA
[2018-11-17] MEDS ORDERED: PT OWN MED DRAWER 7, Y5N ONE (10:50)
[2018-11-17] MEDS: PANTOPRAZOLE SODIUM 40 MG VIAL IVPUSH SCH (10:57)
[2018-11-17] MEDS: LEVOTHYROXINE SODIUM 100 MCG VIAL IVPUSH SCH (10:58)
--- NOTE | 2018-11-17 13:37 | DS ---
Physical Examination Vital Signs: Vital Signs Temperature 97.6 F 11/17/18 06:51 Pulse Rate 53 L 11/17/18 06:51 Respiratory Rate 20 11/17/18 06:51 Blood Pressure 135/67 11/17/18 06:51 O2 Sat by Pulse Oximetry (%) 100 11/16/18 21:00 Findings/Remarks: Laboratory Tests 11/15/18 11/15/18 11/15/18 02:15 02:15 02:15 WBC 3.9 L RBC 3.53 L Hgb 10.3 L Hct 30.7 L MCV 87.0 MCH 29.0 MCHC 33.4 RDW 13.8 Plt Count 190 MPV 8.2 Absolute Neuts (auto) 2.3 Neutrophils % 58.6 Lymphocytes % 29.8 Monocytes % 7.2 Eosinophils % 3.3 Basophils % 1.1 Nucleated RBC % 0 Sodium 140 Potassium 4.0 Chloride 102 Carbon Dioxide 32 Anion Gap 6 L BUN 23.0 H Creatinine 0.8 Est GFR (CKD-EPI)AfAm 100.57 Est GFR (CKD-EPI)NonAf 86.77 POC Glucometer Random Glucose 86 Calcium 9.1 Phosphorus 3.4 Magnesium 2.3 Total Bilirubin 0.4 AST 22 ALT 31 Alkaline Phosphatase 107 Total Protein 7.1 Albumin 3.2 L 11/15/18 11/15/18 11/15/18 07:25 11:55 17:43 WBC RBC Hgb Hct MCV MCH MCHC RDW Plt Count MPV Absolute Neuts (auto) Neutrophils % Lymphocytes % Monocytes % Eosinophils % Basophils % Nucleated RBC % Sodium Potassium Chloride Carbon Dioxide Anion Gap BUN Creatinine Est GFR (CKD-EPI)AfAm Est GFR (CKD-EPI)NonAf POC Glucometer 103 102 83 Random Glucose Calcium Phosphorus Magnesium Total Bilirubin AST ALT Alkaline Phosphatase Total Protein Albumin 11/15/18 11/16/18 11/16/18 21:00 06:01 06:05 WBC 3.5 L RBC 3.61 L Hgb 10.7 L Hct 31.5 L MCV 87.2 MCH 29.7 MCHC 34.0 RDW 13.6 Plt Count 187 MPV 8.7 Absolute Neuts (auto) Neutrophils % Lymphocytes % Monocytes % Eosinophils % Basophils % Nucleated RBC % Sodium Potassium Chloride Carbon Dioxide Anion Gap BUN Creatinine Est GFR (CKD-EPI)AfAm Est GFR (CKD-EPI)NonAf POC Glucometer 83 82 Random Glucose Calcium Phosphorus Magnesium Total Bilirubin AST ALT Alkaline Phosphatase Total Protein Albumin 11/16/18 11/16/18 11/17/18 06:05 21:05 05:51 WBC RBC Hgb Hct MCV MCH MCHC RDW Plt Count MPV Absolute Neuts (auto) Neutrophils % Lymphocytes % Monocytes % Eosinophils % Basophils % Nucleated RBC % Sodium 140 Potassium 4.1 Chloride 105 Carbon Dioxide 26 Anion Gap 8 BUN 15.9 Creatinine 0.8 Est GFR (CKD-EPI)AfAm 100.57 Est GFR (CKD-EPI)NonAf 86.77 POC Glucometer 83 83 Random Glucose 76 Calcium 9.2 Phosphorus Magnesium Total Bilirubin 0.5 AST 24 ALT 27 Alkaline Phosphatase 111 Total Protein 7.0 Albumin 3.2 L Active Medications Generic Name Dose Route Start Last Admin Trade Name Freq PRN Reason Stop Dose Admin Dextrose/Sodium Chloride 1,000 mls @ 42 mls/hr 11/15/18 04:15 11/17/18 06:32 D5-1/2ns - IV 42 mls/hr ASDIR DONELL Administration Levothyroxine Sodium 130 mcg 11/15/18 10:00 11/17/18 10:58 Synthroid Injection - IVPUSH 130 mcg DAILY DONELL Administration Metoprolol Tartrate 5 mg 11/15/18 15:58 Lopressor Injection - IVPB Q4H PRN HYPERTENSION Pantoprazole Sodium 40 mg 11/15/18 10:00 11/17/18 10:57 Protonix Iv IVPUSH 40 mg DAILY DONELL Administration Constitutional: Yes: No Distress, Calm Eyes: Yes: Conjunctiva Clear HENT: Yes: Other (surgical malformation mouth and lips) Cardiovascular: Yes: Regular Rate and Rhythm Respiratory: Yes: Regular, CTA Bilaterally Gastrointestinal: Yes: Normal Bowel Sounds, Soft, Other (G tube) Musculoskeletal: Yes: WNL Extremities: Yes: WNL Edema: No Neurological: Yes: Alert, Pre-Existing Deficit Psychiatric: Yes: Alert Labs: CBC, BMP 11/16/18 06:05 11/16/18 06:05 Discharge Summary Problems reviewed: Yes Reason For Visit: GASTROSTOMY TUBE OBSTRUCTION Current Active Problems BPH (benign prostatic hyperplasia) (Acute) Cancer of the lip, oral cavity, and pharynx (Acute) Diabetes mellitus (Acute) HTN (hypertension) (Acute) Hypothyroid (Acute) PEG tube malfunction (Acute) Hospital Course: Patient is a 78 y/o male with past medical history of Oropharyngeal CA s/p Trach (09/2018), Trach removal (10/2018), PEG placement, HTN, DM, Hypothyroidism, and BPH. Patient presented to [facility] ER from SNF after malfunctioning PEG tube x 2 days. Followed by GI while inpatient and failed enzyme trial to de-clog PEG tube and attempt bedside de-clogging which failed as well. IR consulted and new G tube placed which is functioning well. Condition: Stable - Instructions Diet, Activity, Other Instructions: Follow up with PMD continue medication regimen patient will have Home care services for Med management, PEG tube, Speech continue with Jevity 1.5 20cc/hr, intermittent water flushes, flush PEG tube with water 30cc prior to medical laboratory manager and 30cc after return to ER if develop severe pain, respiratory distress, chest pain, difficulty breathing, PEG tube malfunction Disposition: VNS/HOME HEALTH CARE - Home Medications Comprehensive Discharge Medication List: Ambulatory Orders Aspirin 81 mg PEG DAILY 10/29/18 Chlorhexidine Gluconate 15 ml MM QID 10/29/18 Doxazosin Mesylate [Cardura -] 1 mg PEG DAILY 10/29/18 Esomeprazole Magnesium 40 mg PEG DAILY 10/29/18 Meclizine HCl [Antivert -] 12.5 mg PO Q8H PRN 10/29/18 Oxycodone HCl 5 mg PO Q4H PRN 10/29/18 Polyvinyl Alcohol [Artificial Tears] 1 drop OD TID 10/29/18 Valsartan/Hydrochlorothiazide [Valsartan-Hctz 160-25 mg Tab] 1 each PO DAILY 02/04 Levothyroxine Sodium 175 mcg PO DAILY 11/15/18 Tamsulosin HCl [Flomax -] 0.4 mg PO DAILY 11/15/18
[2018-11-18] MEDS: PANTOPRAZOLE SODIUM 40 MG VIAL IVPUSH SCH (10:07)
[2018-11-18] MEDS: LEVOTHYROXINE SODIUM 100 MCG VIAL IVPUSH SCH (10:08)
--- NOTE | 2018-11-18 11:07 | PN ---
Progress Note (short form) - Note Progress Note: DISCHARGE TO [facility] PENDING AUTH. PAPERWORK AND FORMS/ORDERS COMPLETE TOLERATING FEEDS VIA PEG Problem List - Problems (1) BPH (benign prostatic hyperplasia) Code(s): N40.0 - BENIGN PROSTATIC HYPERPLASIA WITHOUT LOWER URINRY TRACT SYMP (2) Diabetes mellitus Code(s): E11.9 - TYPE 2 DIABETES MELLITUS WITHOUT COMPLICATIONS Qualifiers: Diabetes mellitus type: type 2 Diabetes mellitus long-term insulin use: unspecified long-term insulin use status Diabetes mellitus complication status : without complication Qualified Code(s): E11.9 - Type 2 diabetes mellitus without complications (3) HTN (hypertension) Code(s): I10 - ESSENTIAL (PRIMARY) HYPERTENSION Qualifiers: Hypertension type: essential hypertension Qualified Code(s): I10 - Essential (primary) hypertension (4) Hypothyroid Code(s): E03.9 - HYPOTHYROIDISM, UNSPECIFIED (5) PEG tube malfunction Code(s): K94.23 - GASTROSTOMY MALFUNCTION (6) Cancer of the lip, oral cavity, and pharynx Code(s): C14.8 - MALIG NEOPLM OF OVRLP SITES OF LIP, ORAL CAVITY AND PHARYNX
[2018-11-18] MEDS: DEXTROSE 5%-0.45% SALINE 1,000 ML IV SCH (11:51)
--- NOTE | 2018-11-18 14:36 | PN ---
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 Who presents to the ED for malfunctioned Peg Tube x 2 days. Per transfer records, medications were given but could not give feedings due to blockage. Patient is [place] speaking Pending d/c home. I spoke with pt's niece who reports that pt was sent to [facility] for a swallowingf test last week (MBS? FEES?) and was tols he could eat. PO trials not started at [facility] yet. Pt pending d/c home with homecare. Suggest Homecare Swallowing therapy coordinated with [facility] Speech Pathologist for safest PO intake. Reviewed with staff.
[2018-11-18] MEDS ORDERED: INSULIN (NOVOLOG) ASPART 100 UNITS/ML 10ML VIAL ONE (17:36)
--- NOTE | 2018-11-19 09:27 | PN ---
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 - Current Medication List Current Medications: Active Medications Dextrose/Sodium Chloride (D5-1/2ns -) 1,000 mls @ 42 mls/hr IV ASDIR [facility] Last Admin: 11/18/18 11:51 Dose: 42 mls/hr Levothyroxine Sodium (Synthroid Injection -) 130 mcg IVPUSH DAILY [facility] Last Admin: 11/18/18 10:08 Dose: 130 mcg Metoprolol Tartrate (Lopressor Injection -) 5 mg IVPB Q4H PRN PRN Reason: HYPERTENSION Pantoprazole Sodium (Protonix Iv) 40 mg IVPUSH DAILY [facility] Last Admin: 11/18/18 10:07 Dose: 40 mg - Objective Vital Signs: Vital Signs Temperature 98.6 F 11/19/18 06:59 Pulse Rate 63 11/19/18 06:59 Respiratory Rate 20 11/19/18 06:59 Blood Pressure 130/53 L 11/19/18 06:59 O2 Sat by Pulse Oximetry (%) 100 11/18/18 21:00 Constitutional: Yes: No Distress, Calm Eyes: Yes: Conjunctiva Clear HENT: Yes: Atraumatic, Other (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 CA) Cardiovascular: Yes: Regular Rate and Rhythm Respiratory: Yes: Regular, CTA Bilaterally Gastrointestinal: Yes: Normal Bowel Sounds, Soft Musculoskeletal: Yes: WNL Extremities: Yes: WNL Edema: No Neurological: Yes: Alert Psychiatric: Yes: Alert Labs: CBC, BMP 11/16/18 06:05 11/16/18 06:05 Problem List - Problems (1) Diabetes mellitus Assessment/Plan: -BGM ACHS Code(s): E11.9 - TYPE 2 DIABETES MELLITUS WITHOUT COMPLICATIONS Qualifiers: Diabetes mellitus type: type 2 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 insulin use: unspecified chcf insulin use status Diabetes mellitus complication status : without complication Qualified Code(s): E11.9 - Type 2 diabetes mellitus without complications (2) HTN (hypertension) Assessment/Plan: -BP meds on hold -monitor BP -Lopressor 5mg IVPB prn for SBP >180 and/or DBP >90 Code(s): I10 - ESSENTIAL (PRIMARY) HYPERTENSION Qualifiers: Hypertension type: essential hypertension Qualified Code(s): I10 - Essential (primary) hypertension (3) Hypothyroid Assessment/Plan: -Levothyroxine Code(s): E03.9 - HYPOTHYROIDISM, UNSPECIFIED (4) PEG tube malfunction Assessment/Plan: -GI on board -Jevity 1.5 -replaced with IR and functioning well Code(s): K94.23 - GASTROSTOMY MALFUNCTION (5) Severe malnutrition Assessment/Plan: -continue with feedings as ordered Code(s): E43 - UNSPECIFIED SEVERE PROTEIN-CALORIE MALNUTRITION Assessment/Plan see problem list dvt ppx d/c home pending set up of home care services
[2018-11-19] MEDS: PANTOPRAZOLE SODIUM 40 MG VIAL IVPUSH SCH (09:53)
[2018-11-19] MEDS: LEVOTHYROXINE SODIUM 100 MCG VIAL IVPUSH SCH (09:54)
[2018-11-19] MEDS ORDERED: METOPROLOL TARTRATE 25 MG TABLET (FP) PO ONE (18:07)
[2018-11-19] MEDS ORDERED: PT OWN MED DRAWER 7, Y5N ONE (18:40)
[2018-11-20 06:24] VITALS: TEMP 98.3
[2018-11-20] MEDS: DEXTROSE 5%-0.45% SALINE 1,000 ML IV SCH (09:02)
[2018-11-20] MEDS: PANTOPRAZOLE SODIUM 40 MG VIAL IVPUSH SCH (09:02)
[2018-11-20] MEDS: LEVOTHYROXINE SODIUM 100 MCG VIAL IVPUSH SCH (09:02)
--- NOTE | 2018-11-20 11:05 | PN ---
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 insulin use: unspecified longwall machine operator helper insulin use status Diabetes mellitus complication status : without complication Qualified Code(s): E11.9 - Type 2 diabetes mellitus without complications (3) HTN (hypertension) Code(s): I10 - ESSENTIAL (PRIMARY) HYPERTENSION Qualifiers: Hypertension type: essential hypertension Qualified Code(s): I10 - Essential (primary) hypertension (4) Hypothyroid Code(s): E03.9 - HYPOTHYROIDISM, UNSPECIFIED (5) PEG tube malfunction Code(s): K94.23 - GASTROSTOMY MALFUNCTION (6) Cancer of the lip, oral cavity, and pharynx Code(s): C14.8 - MALIG NEOPLM OF OVRLP SITES OF LIP, ORAL CAVITY AND PHARYNX
[2018-11-20] MEDS ORDERED: LEVOTHYROXINE NA 150 MCG TABLET GT ONE (11:57)
[2018-11-20] MEDS ORDERED: RANITIDINE HCL 150 MG/10 ML UNIT-DOSE GT ONE (11:57)
[2018-11-20] MEDS ORDERED: LEVOTHYROXINE 100 MCG, LEVOTHYROXINE 75 MCG GT ONE (12:15)
[2018-11-20] MEDS ORDERED: LEVOTHYROXINE NA 100 MCG TABLET (FP) ONE (12:50)
[2018-11-20] MEDS ORDERED: LEVOTHYROXINE NA 75 MCG TABLET (FP) ONE (12:50)
[2018-11-20] MEDS ORDERED: PT OWN MED DRAWER 7, Y5N ONE ×3 (12:51→18:51)
[2018-11-20 15:26] VITALS: BP 156/78; PULSE 50
[2018-11-21] MEDS ORDERED: LEVOTHYROXINE NA 125 MCG TABLET (FP) GT SCH ×2 (07:00)
[2018-11-21] MEDS ORDERED: LEVOTHYROXINE 75 MCG, LEVOTHYROXINE 100 MCG GT SCH (07:00)
[2018-11-21] MEDS ORDERED: RANITIDINE HCL 150 MG/10 ML UNIT-DOSE GT SCH (10:00)
[2018-11-21] MEDS ORDERED: METOPROLOL TARTRATE 25 MG TABLET (FP) GT SCH (10:00)
== END 2018-11-20 19:02 | disposition home health service (06) | DRG 393 ==
LOC: JER 22:20 → JERBED 11-15 03:36 → J8W 11-15 05:49 → J7W 11-19 18:29 → J8W 11-19 18:30
PROVIDERS: ADMIT Family Medicine; ATTEND Family Medicine
PROC: 0D20XUZ Change Feeding Device in Upper Intestinal Tract, External Approach (ICD-10-PCS; principal; 2018-11-17)
DX: K94.23 Gastrostomy malfunction (principal); E43 Unspecified severe protein-calorie malnutrition; Z68.1 Body mass index [BMI] 19.9 or less, adult; C14.8 Malignant neoplasm of overlapping sites of lip, oral cavity and pharynx; E11.9 Type 2 diabetes mellitus without complications; I10 Essential (primary) hypertension; E03.9 Hypothyroidism, unspecified; N40.0 Benign prostatic hyperplasia without lower urinary tract symptoms; K21.9 Gastro-esophageal reflux disease without esophagitis; I44.0 Atrioventricular block, first degree; Y83.8 Other surgical procedures as the cause of abnormal reaction of the patient, or of later complication, without mention of misadventure at the time of the procedure
CPT/HCPCS: 36415; 49450; 71045-TC-FY; 76000-TC-FY; 80053; 82962; 83735; 84100; 85025; 85027; 93005; 93010; 97116-GP; 97161-GP; 99284-25; C1769; G0008; J7030; Q2036